=== PATIENT | male | born 1950 | race African-American/Black ===

== ENCOUNTER 2024-05-07 17:25 | Inpatient (IN) | payer OTHER, MEDICAID ==
[~2024-05-07] VITALS: Ht 180.3 cm; Wt 73.9 kg
[2024-05-07 18:42] LABS: Basophils # (auto) 0.1 10 ^3/uL (0-0.2); Basophils % (auto) 0.4 % (0.0-2.0); Eosinophils # (auto) 0.6 10 ^3/uL (0-0.8); Eosinophils % (auto) 2.5 % (0.0-7.0); Hematocrit 39.6 % (41.0-53.0); Hemoglobin 12.9 g/dL (13.5-17.5); Lymphocytes # (auto) 2.5 10 ^3/uL (0.4-5.4); Lymphocytes % (auto) 10.8 % (10.0-50.0); Mean Corpuscular Hemoglobin 28.1 pg (28.0-32.0); Mean Corpuscular Hgb Conc. 32.7 g/dL (32.0-36.0); Mean Corpuscular Volume 85.9 fL (80.0-100.0); Monocytes # (auto) 2.2 10 ^3/uL (0-1.3); Monocytes % (auto) 9.3 % (0.0-12.0); Neutrophils # (auto) 17.9 10 ^3/uL (1.6-8.6); Red Blood Cells 4.61 10^6/uL (4.5-5.90); Red Cell Distribution Width 15.7 % (11.8-14.3); White Blood Cell 23.2 10^3/uL (4.4-10.8)
[2024-05-07 18:55] VITALS: PULSE 104; RESP 19; O2SAT 94
[2024-05-07 19:00] LABS: Alanine Aminotransferase 28 U/L (7-40); Albumin 3.9 g/dL (3.2-4.8); Alkaline Phosphatase 169 U/L (46-116); Anion Gap 6 (5-15); Aspartate Aminotransferase 25 U/L (13-40); BUN/Creatinine Ratio 12.9 (10.0-20.0); Bilirubin, Total 0.5 mg/dL (0.2-1.0); Blood Alcohol < 3.0 mg/dL (<10); Blood Urea Nitrogen 15 mg/dL (9-23); Calcium 9.5 mg/dL (8.5-10.1); Carbon Dioxide 23 mmol/L (20-30); Chloride 110 mmol/L (98-107); Glucose 157 mg/dL (74-106); Potassium 3.7 mmol/L (3.5-5.1); Sodium 139 mmol/L (136-145); Total Protein 6.8 g/dL (5.7-8.2)
[2024-05-07 19:02] LABS: Lactic Acid w/Reflex 2.1 mmol/L (0.4-2.0)
[2024-05-07 19:23] LABS: Urine Bacteria MANY /hpf (None Seen); Urine Blood 2+ /uL (Negative); Urine Clarity Clear (Clear); Urine Color Yellow (Yellow); Urine Mucus FEW (None Seen); Urine Protein, UAD 1+ (Negative); Urine Specific Gravity 1.024 (1.001-1.035); Urine Urobilinogen Normal (Negative); Urine WBC 90 /hpf (0 - 3); Urine WBC Clumps PRESENT /hpf (None Seen); Urine pH 5.5 (5.0-9.0)
[2024-05-07] MEDS: ACETAMINOPHEN 650 MG RECT SUPP PR ONE (20:14)
[2024-05-07 20:46] VITALS: PULSE 100; RESP 22; O2SAT 95
[2024-05-08] MEDS: levoFLOXacin 500MG 100 ML IV ONE (00:48)
[2024-05-08] MEDS: HYDROcodone-ACET 5/325MG TAB PO ONE (02:47)
[2024-05-08] MEDS: ASPirin 325 MG TAB PO ONE ×2 (03:45)
[2024-05-08] MEDS ORDERED: ONDANSETRON HCL 4 MG/2 ML VIAL IV PRN (04:30)
[2024-05-08] MEDS ORDERED: DEXTROSE (50%) 50ML SYRG IV PRN (04:30)
[2024-05-08] MEDS: InsuLIN REG 1unit/0.01ml Soln (100units/ml) SC SCH (07:00)
[2024-05-08] MEDS: ACCU-CHEK COMFORT CURVE STRIP VI SCH (07:06)
[2024-05-08 08:00] VITALS: PULSE 92; RESP 17; O2SAT 94
[2024-05-08] MEDS: AZITHROMYCIN 500MG/ 250ML 250 ML IV SCH (10:02)
[2024-05-08] MEDS: cefTRIAXone 1GM/50ML D5W 50 ML IV SCH (10:02)
[2024-05-08] MEDS: ASPirin 81 mg TAB PO SCH (10:03)
[2024-05-08] MEDS: METOPROLOL SUCCINATE XL 50 MG TAB PO SCH (10:06)
[2024-05-08] MEDS: LISINOPRIL 5 MG TAB PO SCH (10:07)
[2024-05-08] MEDS: ENOXAPARIN SOD 40 MG/0.4 ML SYRINGE SC SCH (10:07)
[2024-05-08] MEDS ORDERED: LORazepam 2MG/ML-1ML VIAL IV PRN (11:00)
[2024-05-08 12:15] LABS: Free T4 (Free Thyroxine) 0.91 ng/dL (0.89-1.76)
[2024-05-08 12:16] LABS: Folate (Folic Acid) 12.63 ng/mL (>5.38)
[2024-05-08] MEDS: ACETAMINOPHEN 325 MG TAB PO PRN (16:41)
[2024-05-08 20:16] VITALS: PULSE 97; RESP 14; O2SAT 96
[2024-05-08 21:38] VITALS: PULSE 104; RESP 16; O2SAT 99
[2024-05-08 22:00] VITALS: BP 165/90; PULSE 104; RESP 16; TEMP 99.2; O2SAT 99
[2024-05-08] MEDS: ATORVASTATIN 20 MG TAB PO SCH (22:56)
[2024-05-08] MEDS ORDERED: MET50T PO (23:24)
[2024-05-08] MEDS ORDERED: HYDR-4798 PO (23:24)
[2024-05-08] MEDS ORDERED: HYDR50TA47 PO (23:24)
[2024-05-08] MEDS ORDERED: TRAM50TA2 PO (23:24)
[2024-05-08] MEDS ORDERED: GABA-1250 PO (23:24)
[2024-05-08] MEDS ORDERED: METOPROLOL TARTRATE 25 MG TAB PO ONE (23:45)
[2024-05-09] VITALS (8 sets, daily range): BP systolic 147–179; BP diastolic 80–101; PULSE 82–100; RESP 16–22; TEMP 97.6–100.4; O2SAT 96–100
[2024-05-09] MEDS: METOPROLOL TARTRATE 25 MG TAB PO ONE (03:30)
[2024-05-09 06:26] LABS: Hematocrit 40.1 % (41.0-53.0); Hemoglobin 13.5 g/dL (13.5-17.5); Mean Corpuscular Hemoglobin 28.6 pg (28.0-32.0); Mean Corpuscular Hgb Conc. 33.5 g/dL (32.0-36.0); Mean Corpuscular Volume 85.4 fL (80.0-100.0); Red Cell Distribution Width 15.5 % (11.8-14.3); White Blood Cell 17.9 10^3/uL (4.4-10.8)
[2024-05-09 06:30] LABS: Basophils % (manual) 0 (0.0-2.0); Blast Cells 0; Metamyelocytes % 0; Myelocytes % 0; Promyelocytes % 0; Reactive Lymphocytes 0
[2024-05-09 06:36] LABS: Chloride 109 mmol/L (98-107); Potassium 3.9 mmol/L (3.5-5.1); Sodium 138 mmol/L (136-145)
[2024-05-09 06:37] LABS: Anion Gap 7 (5-15); Calcium 9.3 mg/dL (8.5-10.1); Carbon Dioxide 22 mmol/L (20-30)
[2024-05-09 06:42] LABS: BUN/Creatinine Ratio 14.3 (10.0-20.0); Blood Urea Nitrogen 13 mg/dL (9-23); Glucose 113 mg/dL (74-106)
[2024-05-09 07:57] LABS: Band Neutrophils % (manual) 1; Eosinophils % (manual) 1 (0-7); Lymphocytes % (manual) 6 (10.0-50.0); Monocytes % (manual) 21 (0-12); Platelet Estimate Adequate
[2024-05-09 11:06] LABS: COVID19 ANTIGEN SOFIA FIA NEGATIVE (NEGATIVE)
[2024-05-09] MEDS: IOHEXOL 350 MG/ML 100ML IJ ONE (14:29)
[2024-05-09] MEDS: DOCUSATE SOD 100 MG CAP PO SCH (23:14)
[2024-05-10] VITALS (8 sets, daily range): BP systolic 119–184; BP diastolic 56–99; PULSE 69–113; RESP 16–20; TEMP 98.4–99.5; O2SAT 96–100
[2024-05-10 02:39] LABS: Rapid Influenza A Negative (Negative); Rapid Influenza B Negative (Negative)
[2024-05-10] MEDS ORDERED: VANCOMYCIN PER PHARMACY 0 MG IV SCH (10:45)
[2024-05-10] MEDS: VANCOMYCIN 1,000 MG in D5W 5% 250 ML IV SCH (13:57)
[2024-05-10] MEDS: VANCOMYCIN 1GM/200ML 200 ML IV SCH (22:38)
[2024-05-11] VITALS (7 sets, daily range): BP systolic 144–160; BP diastolic 76–94; PULSE 85–92; RESP 16–18; TEMP 97.8–98.2; O2SAT 94–100
[2024-05-11] MEDS ORDERED: QUET25TA37 PO (10:55)
[2024-05-11] MEDS ORDERED: QUET50TA PO (10:55)
[2024-05-11] MEDS ORDERED: CITA20TA9 PO (10:56)
[2024-05-11] MEDS ORDERED: METF-370 PO (10:58)
[2024-05-11] MEDS ORDERED: GABA-1250 PO (10:58)
[2024-05-11] MEDS ORDERED: CILO100T3 PO (10:59)
[2024-05-11] MEDS: HYDROcodone-ACET 5/325MG TAB PO PRN (13:09)
[2024-05-11 15:22] LABS: INR 1.08 (0.9-1.15); Partial Thromboplastin Time 32.2 SEC (24.5-34.5); Prothrombin Time 11.4 sec (9.3-11.8)
[2024-05-11] MEDS: LIDOCAINE 1% (LOCAL ANESTH.) PF 5ml SDV ID ONE (16:33)
[2024-05-11] MEDS ORDERED: QUEtiapine FUMARATE 25 MG TAB PO SCH (22:00)
[2024-05-11] MEDS ORDERED: CILOSTAZOL 100 MG TAB PO SCH (22:00)
[2024-05-11] MEDS ORDERED: GABAPENTIN 400 MG CAP PO SCH (22:00)
[2024-05-11] MEDS ORDERED: SODIUM CHLOR 0.9% PF (SALINE LOCK) 10ML VIAL/SYR IV SCH (22:00)
[2024-05-12] MEDS ORDERED: QUEtiapine FUMARATE 25 MG TAB PO SCH (10:00)
[2024-05-12] MEDS ORDERED: metFORMIN HYDROCHLORIDE 500 MG TAB PO SCH (10:00)
[2024-05-12] MEDS ORDERED: CITALOPRAM HYDROBR 20 MG TAB PO SCH (10:00)
== END 2024-05-11 20:40 | DRG 871 ==
LOC: ER 17:25 → EDBD 17:25 → OVERFLOW 05-08 04:33 → WEST WING 05-08 21:35
PROVIDERS: ADMIT Nurse Practitioner; ATTEND Family Medicine
PROC: 02HV33Z Insertion of Infusion Device into Superior Vena Cava, Percutaneous Approach (ICD-10-PCS; principal; 2024-05-11)
PROC: B548ZZA Ultrasonography of Superior Vena Cava, Guidance (ICD-10-PCS; 2024-05-11)
DX: A41.50 Gram-negative sepsis, unspecified (principal); G93.41 Metabolic encephalopathy; R65.21 Severe sepsis with septic shock; J15.69 Pneumonia due to other Gram-negative bacteria; J15.9 Unspecified bacterial pneumonia; I69.354 Hemiplegia and hemiparesis following cerebral infarction affecting left non-dominant side; N39.0 Urinary tract infection, site not specified; R64 Cachexia; Z66 Do not resuscitate; E11.9 Type 2 diabetes mellitus without complications; E78.00 Pure hypercholesterolemia, unspecified; E86.0 Dehydration; E88.09 Other disorders of plasma-protein metabolism, not elsewhere classified; F17.200 Nicotine dependence, unspecified, uncomplicated; I10 Essential (primary) hypertension; Z20.822 Contact with and (suspected) exposure to COVID-19; Z74.01 Bed confinement status; Z83.3 Family history of diabetes mellitus; Z82.49 Family history of ischemic heart disease and other diseases of the circulatory system; Z79.82 Long term (current) use of aspirin; Z79.899 Other long term (current) drug therapy; Z68.22 Body mass index [BMI] 22.0-22.9, adult
CPT/HCPCS: 36415; 36569; 70450; 71045; 71275; 80048; 80053; 80202; 80320; 81001; 82565; 82607; 82746; 82962; 83605; 83880; 84439; 84443; 84484; 85007; 85025; 85027; 85379; 85610; 85730; 87040; 87077; 87086; 87186; 87426; 87804; 93005; 93970; 96365; 96366; 96367; 96372; 97110; 97163; 97530; G0378; J1815; J1956; J7060